=== PATIENT | male | born 1985 | race American Indian/Alaskan Native ===

== ENCOUNTER 2018-09-16 00:54 | Emergency (ER) | payer SELFPAY ==
[2018-09-16] MEDS ORDERED: ZITHROMAX PO ONE (02:22)
[2018-09-16] MEDS ORDERED: ROCEPHIN IM ONE (02:22)
[2018-09-16] MEDS ORDERED: XYLOCAINE 1% MPF 5 mL INFILTRATI ONE (02:22)
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
[2018-09-16 04:07] LABS: Bilirubin,Urine NEG (Negative); Blood,Urine SM (Negative); Color,Urine Yellow (Yellow); Mucus,Urine FEW /HPF; Urobilinogen,Urine < 2.0 mg/dL (<2.0)
[2018-09-16 04:09] LABS: WBC,Urine > 182.0 /HPF (0.0-6.0)
[2018-09-16 08:46] VITALS: BP 143/88
== END 2018-09-16 02:37 | disposition home or self-care (01) ==
LOC: ED 00:54
DX: A64 Unspecified sexually transmitted disease (principal)
CPT/HCPCS: 81001; 96372; 99283; J0696

== ENCOUNTER 2021-02-27 08:20 | Emergency (ER) | payer SELFPAY ==
[2021-02-27] MEDS ORDERED: ASPIRIN 325 MG TAB PO ONE (08:28)
[2021-02-27 08:34] VITALS: BP 147/98
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
--- NOTE | 2021-02-27 08:58 | XRay Report ---
XR chest routine 2V INDICATION / CLINICAL INFORMATION: cp COMPARISON: None available. FINDINGS: SUPPORT DEVICES: None. HEART / MEDIASTINUM: No significant abnormality. LUNGS / PLEURA: Lungs are clear. Costophrenic sulci are sharp. No pneumothorax. ADDITIONAL FINDINGS: No significant additional findings. IMPRESSION: 1. No acute findings. Signer Name: Vladislav Lozoya MD Signed: 02/27/2021 8:54 AM Workstation Name: [id number]
[2021-02-27 09:10] LABS: Basophils # (Auto) 0.1 K/mm3 (0.0-0.1); Eosinophils # (Auto) 0.1 K/mm3 (0.0-0.4); Hematocrit 47.2 % (35.5-45.6); Hemoglobin 16.3 gm/dl (11.8-15.2); Lymphocytes # (Auto) 2.2 K/mm3 (1.2-5.4); Lymphocytes % (Auto) 37.3 % (13.4-35.0); Mean Corpuscular HGB Conc 35 % (32-34); Mean Corpuscular Volume 84 fl (84-94); Monocytes # (Auto) 0.9 K/mm3 (0.0-0.8); Monocytes % (Auto) 15.1 % (0.0-7.3); Platelet Count 203 K/mm3 (140-440); Red Blood Count 5.61 M/mm3 (3.65-5.03); Red Cell Distribution Width 14.8 % (13.2-15.2)
[2021-02-27 09:53] LABS: Alanine Aminotransferase 19 units/L (7-56); BUN/Creatinine Ratio 16; Blood Urea Nitrogen 16 mg/dL (9-20); Calcium 8.9 mg/dL (8.4-10.2); Hemolysis Index 22
[2021-02-27 10:04] LABS: Amphetamine Screen,Urine Negative; Benzodiazepines Screen,Urine Negative; Cocaine Screen,Urine Negative; Opiate Screen,Urine Negative
[2021-02-27 10:07] LABS: Bacteria,Urine 1+ /HPF (Negative); Bilirubin,Urine NEG (Negative); Blood,Urine MOD (Negative); Color,Urine Yellow (Yellow); Mucus,Urine FEW /HPF; Urobilinogen,Urine < 2.0 mg/dL (<2.0)
[2021-02-27 10:27] LABS: Protein,Urine >500 mg/dL (Negative)
[2021-02-27 10:43] LABS: Cannabinoid Screen,Urine PRESUMPTIVE POSITIVE; Methadone Screen,Urine PRESUMPTIVE NEGATIVE
[2021-02-27] MEDS ORDERED: IBUPROFEN 800 MG TAB PO ONE (11:24)
--- NOTE | 2021-02-28 14:38 | Electrocardiograph Report ---
[facility] Test Date: 2021-02-27 Test Time: 08:37:42 Pat Name: DANIELA JOHNSON Department: Room: Gender: M [employer] Supervisor: JOSE SAINIB: 1985 Requested By: ED DOC Order Number: [id number] Reading MD: Olga Tan Measurements Intervals [place] Rate: 100 P: 69 RI: 153 QRS: -88 QRSD: 89 T: 43 QT: 338 QTc: 438 Interpretive Statements Sinus tachycardia Probable left atrial enlargement LEFT AXIS DEVIATION Inferior infarct, old Borderline ST elevation, anterior leads No previous ECG available for comparison Electronically Signed On 02-28-2021 14:38:24 EDT by Olga Tan
== END 2021-02-27 12:26 | disposition home or self-care (01) ==
LOC: ED 08:20
DX: B02.9 Zoster without complications (principal); Z21 Asymptomatic human immunodeficiency virus [HIV] infection status; F17.200 Nicotine dependence, unspecified, uncomplicated; F12.10 Cannabis abuse, uncomplicated; Z79.899 Other long term (current) drug therapy
CPT/HCPCS: 36415; 71046; 80053; 80307; 81001; 83690; 84484; 85025; 85379; 93005